=== PATIENT | male | born 1930 | race Caucasian/White ===

== ENCOUNTER 2016-07-31 23:00 | Observation (INO) | payer MEDICARE, BC ==
--- NOTE | ~2016-07-31 | CONSULT ---
Radiation Oncology Consult [address] [place]. [address] NAME: JANET BELLA : 31 STATUS : ADM Christine PAT#: [id number] AGE: 86 ADM/REG DATE : 07/31/16 MR#: [id number] REPORT SERV DATE: 08/02/16 DICTATED BY: JUSTIN ROTH DATE: 08/02/16 REPORT STATUS : Draft TRANSCRIBED BY: [place] DATE: 08/02/16 RADIATION ONCOLOGY CONSULTATION DIAGNOSIS: Stage IB; T2, N0, M0, right lower lobe non-small cell lung cancer. PREVIOUS TREATMENT: Hypofractionated IMRT to 60 Gy in 15 fractions. DATE OF COMPLETION: 11/24/2015. INTERVAL HISTORY: This is a delightful 86-year-old male with dementia and CVA, who presented with increasing shortness of breath and cough. A CT of chest confirmed a large mass in the right lower lobe and a bronchoscopy was positive for moderately differentiated squamous cell carcinoma. He underwent definitive radiation to 60 Gy with hypofractionated radiation. He tolerated treatment very well and had a nice response with his most recent CT of chest on 02/26/2016 noting a decrease in the mass to now measuring 3 cm. The patient is currently admitted with 3 days of generalized weakness as well as nausea and vomiting. A CT of the abdomen and pelvis was performed. This showed enlarging right lower lobe mass with adjacent pleural thickening at the site of the prior radiation. There were chronic calcified pleural plaques. There was no other evidence of metastatic disease. I am consulted to discuss imaging findings. At today's visit, the patient reports he is doing well. He is a poor historian, and his family is not present at this time. Upon questioning, he reports he is feeling fairly well. He has had no changes in his respiratory symptoms. He has chronic dyspnea on exertion. He denies any weight loss, bone pains, or new neurologic symptoms. PAST MEDICAL HISTORY: 1. Dementia. 2. CVA. 3. Hemiplegia. 4. Hypertension. 5. Hyperlipidemia. 6. Anxiety. 7. Sleep apnea. 8. Tobacco abuse. 9. Stage IB non-small cell lung cancer. REVIEW OF SYSTEMS: A complete and extended review of system was performed, pertinent positives noted in the HPI. MEDICATIONS: Medication reconciliation has been reviewed and discussed. Please refer to EMR. ALLERGIES: NO KNOWN DRUG ALLERGIES. Radiation Oncology Consult [address] [place]. [address] NAME: JANET BELLA : 31 STATUS : ADM Christine PAT#: [id number] AGE: 86 ADM/REG DATE : 07/31/16 MR#: [id number] REPORT SERV DATE: 08/02/16 DICTATED BY: JUSTIN ROTH DATE: 08/02/16 REPORT STATUS : Draft TRANSCRIBED BY: [place] DATE: 08/02/16 SOCIAL HISTORY: The patient is . Prior smoker for more than 40 years. He denies alcohol or illicit drug use. PHYSICAL EXAMINATION: ECOG performance status 2. Pain score 0/10. VITAL SIGNS: Weight 165. Height 5 feet 10 inches. Temperature afebrile. GENERAL: A well-developed, well-nourished elderly male in no acute distress. He is lying comfortably in the hospital bed. HEENT: Normocephalic. Extraocular movements intact. Moist mucous membranes. LYMPHATICS: No supraclavicular or cervical lymphadenopathy. CARDIOVASCULAR: Normal rate and rhythm. No murmurs. RESPIRATORY: Clear to auscultation bilaterally. Normal breathing. No wheezing. GI: Soft, nontender, and nondistended. EXTREMITIES: No edema. Normal range of motion. NEUROLOGIC: Cranial nerves intact. Aside the hemiplegia is unchanged. Patient lying in the hospital bed and gait not tested. PSYCHIATRIC: Verbalizes understanding of our discussion. Demonstrates appropriate insight. IMAGING: I personally reviewed the CT of the abdomen and pelvis, shows dense consolidation in the right lower lobe. This is the site of prior radiation. ASSESSMENT AND PLAN: An 86-year-old male with stage IB; T2a, N0, M0, right lower lobe squamous cell carcinoma, status post definitive radiation. I suspect his imaging findings are consistent with post-radiation change. I believe he would benefit from a dedicated CT of chest with IV contrast. I will follow with the patient after CT to discuss these findings. I appreciate the opportunity to take part in this patient's care. JOSÉ/GEOR[place] Justin Roth MD / [id number] CC: Ayana Grant M.D. Darrell Johnson, M.D.
--- NOTE | ~2016-07-31 | HP ---
History And Physical [address] [place]. [address] NAME: JANET BELLA : 31 STATUS : ADM Christine PAT#: [id number] AGE: 86 ADM/REG DATE : 07/31/16 MR#: [id number] REPORT SERV DATE: 08/01/16 DICTATED BY: MARY BEE DATE: 08/01/16 REPORT STATUS : Draft TRANSCRIBED BY: MODL DATE: 08/01/16 DATE OF ADMISSION: 07/31/2016 CHIEF COMPLAINT: Weakness. HISTORY OF PRESENT ILLNESS: The patient is an 86-year-old male with past medical history of right lung cancer, seen by Dr. Orozco with radiation approximately six months ago completed by Dr. Laura Roth, who presents after having three days of generalized weakness that has been constant, moderate severity without pain or radiating symptoms, but did notice to have nausea and vomiting, only eating minimal or quarter of Ensure today and only a few bites of food in the last two days. Has had progressive weakness. No worsening symptoms, but no relieving symptoms. Symptoms are still currently present, and family is concerned for loss of appetite and nausea and vomiting type symptoms. ADDITIONAL REVIEW OF SYSTEMS: CONSTITUTIONAL: Noted for weakness, but no fever or chills. EYES: No eye pain or visual changes. ENT: No sore throat or congestion. NEURO: No headache or confusion. SKIN: No rashes or urticaria. RESPIRATORY: No shortness of breath or cough. CV: No chest pain or palpitations. GI: Positive for nausea and vomiting. : No dysuria or hematuria reported. MUSCULOSKELETAL: No myalgias or arthralgias above baseline. ENDO: Does have fatigue, but no polyuria. HEME: No bleeding, but does have bruising history that is chronic. IMMUNOLOGIC: No rhinorrhea. PSYCH: No anxiety, but does have a dementia component. PAST MEDICAL HISTORY: Right lung cancer, dementia, CVA with right-sided weakness, hypertension, anxiety, hyperlipidemia, chronic back pain with narcotic dependence, urethral stricture surgically dilated, MARISSA, asbestos exposure, GI bleeding on Plavix. PAST SURGICAL HISTORY: Back surgery. SOCIAL HISTORY: Noted for GI cancers. SOCIAL HISTORY: Smoked 40 years ago. Does have asbestos exposure. personal computer network engineer. No alcohol or illicits. ALLERGIES: NO KNOWN DRUG ALLERGIES. HOME MEDICATIONS: List still currently pending once pharmacy opens to confirm. PHYSICAL EXAMINATION: VITAL SIGNS: The patient's blood pressure is 122/74, temperature 97.6, pulse 91, O2 sats History And Physical [address] [address] NAME: JANET BELLA : 32 STATUS : ADM Christine PAT#: [id number] AGE: 86 ADM/REG DATE : 07/31/16 MR#: [id number] REPORT SERV DATE: 08/01/16 DICTATED BY: MARY BEE DATE: 08/01/16 REPORT STATUS : Draft TRANSCRIBED BY: [place] DATE: 08/01/16 92% on room air. GENERAL: Well developed, well nourished. HEAD: Normocephalic, atraumatic. EYES: No scleral icterus. EOMI. ENT: Nares patent. Tongue midline. Mildly dry mucous membranes. RESPIRATORY: No wheezes. Polyphonic breath sounds on right side and no stridor. CHEST: Equal chest expansion. CV: Mildly tachycardic, but no rubs. No pedal edema. GI: Soft, nontender, nondistended. : Deferred. MUSCULOSKELETAL: Moves extremities. Does have contracture of right hand and fingers secondary to prior stroke, but able to lift and move hand. SKIN: Warm and dry. LYMPH: No cervical or supraclavicular lymphadenopathy. HEME: No bleeding or bruising. NEURO: Alert and oriented. Does move all extremities with debilitated right hand prior from stroke. Does have overall slightly decreased weakness, generalized. Does have occasional confusion episodes, which says is related to dementia PSYCH: Appropriate mood and affect. IMAGING: CT abdomen and pelvis noted for no acute abdominal or pelvic pathology, but enlarging right mass in the lower lobe with pleural thickening suspicious for progression of underlying malignancy. LABORATORY DATA: Flu screen negative. Urinalysis; negative leukocyte esterase and nitrites. CMP; sodium 142, potassium 3.9, BUN and creatinine 12 and 1.16, glucose 124. LFTs within normal limits. Alkaline phosphatase 121. Albumin 3.1 with a calcium of 8.9 and total protein 8. Glucose 124. CBC; WBC count 7.4, H and H 14.7 and 45.7, platelets 356. ASSESSMENT: 1. Weakness. 2. Nausea and vomiting. 3. Headache with dizziness. 4. Increased right lung mass. 5. Prior stroke with right arm deficit reported at baseline. 6. Dementia at baseline. 7. Recent esophageal dilatation. Improved p.o. tolerance per . PLAN: 1. For weakness and decreased p.o. intake, we will give IV fluids. The patient has had recent esophageal dilatation, but no signs or symptoms of aspiration reported, and the patient reports that he is able to tolerate somewhat bigger meals than he has in the past, but overall decreased p.o. intake in the last two days. IV fluids to monitor. CT noted for enlarging right lower lobe tumor. We will need to check ionized calcium. 2. Nausea and vomiting. Treat supportively. Currently comfortable at rest. 3. Headache with dizziness. The patient clinically looks volume depleted with decreased p.o. intake and dry mucous membranes. We will IV hydrate. No acute neuro History And Physical [address] [address] NAME: JANET BELLA : 31 STATUS : ADM Christine PAT#: [id number] AGE: 86 ADM/REG DATE : 07/31/16 MR#: [id number] REPORT SERV DATE: 08/01/16 DICTATED BY: MARY BEE DATE: 08/01/16 REPORT STATUS : Draft TRANSCRIBED BY: [place] DATE: 08/01/16 decompensation. Check orthostasis. Questionable vertigo component. We will defer CT head if required or any clinical change to Oncology as possible CT chest may be required to decrease radiation load if not needed. 4. Increased right lung nodule noted on CT of abdomen. Onc evaluation. Obtain records from Dr. Orozco and sees Dr. Roth. Defer to Dr. Orozco or Oncology Team for further guidance. 5. Prior stroke with right arm deficit appears neurologically at baseline per family except for weakness. 6. Dementia also reported at baseline. 7. Recent esophageal dilatation. The patient reports he is also able to tolerate slightly bigger meals than previously. DISPOSITION: Pending oncology evaluation and improvement of weakness. DDN/MODL Mary Bee MD / [id number] CC: MD Liz Gil M.D.
--- NOTE | ~2016-07-31 | DS ---
Discharge Summary [facility] [address] [place]. [address] NAME: JANET BELLA : 32 STATUS : DIS IN PAT#: [id number] AGE: 86 ADM/REG DATE : 08/02/16 MR#: [id number] REPORT SERV DATE: 08/04/16 DICTATED BY: DATE: REPORT STATUS : Draft TRANSCRIBED BY: MODL DATE: 08/03/16 ADMISSION DATE: 08/02/2016 DISCHARGE DATE: 08/03/2016 DISCHARGE DIAGNOSES: 1. Weakness/debility. 2. Nausea. 3. Dementia. 4. Severe malnutrition. 5. Non-small cell lung cancer. CONSULTATIONS: Dr. Luis Roth, [facility]. PERTINENT TESTS AND PROCEDURES: 1. CT of abdomen and pelvis, 07/31/2016, impression:. a. No acute abdominal or pelvic pathology. No bowel obstruction pattern. b. Enlarging mass, right lower lobe, with adjacent pleural thickening, suspicious for progression of known underlying malignancy. c. Chronic calcified pleural plaques both left and right hemothoraces consistent with remote sequelae of chronic asbestos exposure. d. Bilateral simple renal cysts. e. Prostate enlargement probably be BPH, although recommend correlation PSA levels. f. Mild diverticulosis, sigmoid colon. No diverticulitis pattern. g. Chronic changes of spinal fusion, L4 through 5. 2. Chest x-ray, 07/31/2016, impression, opacity in the right lung base consistent with a mass identified on prior CT, 10/12/2016. 3. Chest x-ray, 08/01/2016, impression, appears to be increase in effusion in the right costophrenic angle compared to previous study. Right lung base mass is accentuated most likely secondary to oblique position. 4. CT of the chest with contrast, 08/02/2016, impression:. a. The patient is status post treatment for right lower lobe lung carcinoma. Consolidation in the right lower lobe with air bronchograms. Recurrent mass lesion within the consolidated lung cannot be excluded. b. No adenopathy. c. COPD. Extensive bilateral pleural thickening and pleural calcifications consistent with prior asbestos exposure. d. Images of the upper abdomen do not demonstrate evidence of metastatic disease. Bones are diffusely osteopenic. No lytic bone lesions. 5. Influenza A and B screen negative. 6. Urinalysis, 07/31/2016, result negative. HOSPITAL COURSE: Please refer to history and physical dated 08/01/[address] Carson Marie for complete details pertaining to the patient's initial presentation upon admission and health history. Discharge Summary [address] [facility] [place]. [address] NAME: JANET BELLA : 32 STATUS : DIS IN PAT#: [id number] AGE: 86 ADM/REG DATE : 08/02/16 MR#: [id number] REPORT SERV DATE: 08/04/16 DICTATED BY: DATE: REPORT STATUS : Draft TRANSCRIBED BY: MODL DATE: 08/03/16 Please also refer to consultation dated 08/02/[address] Luis Roth, Radiation Oncology. Briefly, the patient is an 86-year-old male, who presented to the emergency department on 07/31/2016 with complaints of increased generalized weakness for approximately three days prior to admission, nausea with vomiting, and decreased appetite. During initial diagnostic workup, CT of abdomen and pelvis reported enlarging right mass in the lower lobe with pleural thickening, suspicious for progression of underlying malignancy. Dr. Luis Roth, Radiation Oncology, was consulted for additional evaluation and recommendation. The patient was approximately six months status post radiation therapy prior to this admission. 1. Weakness and debility. The patient has a history of right-sided residual weakness secondary to stroke. Physical Therapy evaluation was completed during this admission. Plan is for the patient to resume Home Health Care upon discharge. The patient does have difficulty going from bed to standing without max assist. However, when standing, the patient is able to ambulate short distances using a walker. The patient will be provided with a hospital bed for home use upon discharge secondary to weakness and difficulty repositioning body while in bed. 2. Nausea. The patient reported nausea and vomiting upon admission. Vomiting has since resolved during this hospital stay. The patient has responded well to Zofran as needed and will be provided a prescription at discharge. Exact etiology of nausea is unclear; however, it is noteworthy to mention that the patient is status post recent esophageal dilatation. The patient is able to eat and swallow food without difficulty. 3. Dementia. Per family report, the patient's mental status is at baseline. Continue home medications to include Exelon patch and Namenda. 4. Severe malnutrition. This has been an ongoing issue in the setting of lung cancer. The patient has been encouraged to consume p.o. intake and it is recommended that nutritional supplement shakes of the patient's preference be provided three times daily at home. Nutrition was consulted during this visit. 5. Non-small cell lung cancer. Dr. Luis Roth was consulted during this admission. CT of chest was ordered and per Radiation Oncology, review of scan indicated post radiation therapy change with no evidence of disease recurrence. The patient is to follow up with Dr. Roth in three months for office visit and repeat CT scan of the chest. DISCHARGE CONDITION: At the time of discharge, the patient is hemodynamically stable. DISCHARGE DIET: Regular diet as tolerated. DISCHARGE MEDICATIONS: 1. Aspirin 81 mg tablet p.o. daily. 2. Lipitor 40 mg tablet p.o. daily. 3. Baclofen 20 mg tablet p.o. twice daily. 4. Depakote ER 250 mg tablet p.o. daily. 5. Flonase nasal spray one spray in each nostril daily. Discharge Summary [address] [address] NAME: JANET BELLA : 32 STATUS : DIS IN PAT#: [id number] AGE: 86 ADM/REG DATE : 08/02/16 MR#: [id number] REPORT SERV DATE: 08/04/16 DICTATED BY: DATE: REPORT STATUS : Draft TRANSCRIBED BY: [place] DATE: 08/03/16 6. Robitussin 200 mg per 10 mL syrup 400 mg p.o. every six hours as needed. 7. Namenda 10 mg tablet p.o. daily. 8. Myrbetriq 25 mg tablet p.o. daily. 9. Zofran 4 mg tablet p.o. every four hours as needed. 10.Prilosec 20 mg tablet p.o. daily. 11.Lyrica 75 mg tablet p.o. daily. 12.Exelon 9.5 mg patch daily. 13.Tylenol 325 mg tablet, take 650 mg p.o. every four hours as needed. 14.Colace 100 mg tablet p.o. twice daily as needed. 15.Ultram 50 mg tablet p.o. twice daily as needed. 16.Senokot two tablets p.o. at bedtime as needed. 17.Albuterol 0.083% 3 mL inhalation solution one nebulizer treatment inhaled every six hours as needed. DISCHARGE INSTRUCTIONS: 1. Follow up with Dr. Luis Roth, Radiation Oncology, in three months for office visit and repeat CT scan of the chest. 2. The patient and spouse were instructed to return to the ER for any acute onset of intractable nausea, vomiting, abdominal pain, shortness of breath, fever 100.4 or greater lasting more than one hour, or any other acute changes that are deviations from his baseline health status at the time of this discharge. PRIMARY RADIATION ONCOLOGIST: Dr. Luis Roth. PRIMARY ONCOLOGIST: Dr. Orozco, [facility]. JWH/MODL Carmelita James NP-C / [id number] CC: Ayana Jones M.D. Derek W Holland, M.D. Darshan D. Naik, MD Jonathan T Whaley, MD
[2016-07-31 16:52] LABS: BASOPHILS 0.1 %; BASOPHILS ABSOLUTE 0.01 10/3/uL (0.0-0.16); EOSINOPHILS 0.8 %; EOSINOPHILS ABSOLUTE 0.06 10/3/uL (0.0-0.53); ER CBC TAT 0 Hrs 09 Mins; HEMATOCRIT 45.9 % (40.0-51.0); HEMOGLOBIN 14.7 g/dL (13.6-17.8); IMMATURE GRANULOCYTES 0.3 %; IMMATURE GRANULOCYTES ABSOLUTE 0.02 10/3/uL (0.0-0.11); LYMPHOCYTES 11.7 %; LYMPHOCYTES ABSOLUTE 0.87 10/3/uL (0.67-4.30); MANUAL DIFF NO %; MEAN CORPUSCULAR HEMOGLOB 27.9 pg (26.0-34.0); MEAN CORPUSCULAR VOLUME 87.1 fL (80-100); MEAN PLATELET VOLUME 9.3 fL (9.2-13.0); MONOCYTES 5.5 %; MONOCYTES ABSOLUTE 0.41 10/3/uL (0.21-1.20); NEUTROPHILS 81.6 %; NEUTROPHILS ABSOLUTE 6.05 10/3/uL (2.02-8.40); PLATELET COUNT 356 10/3/uL (150-400); RBC DISTRIBUTION WIDTH 16.8 % (12.0-16.0); RED CELL COUNT 5.27 10/6/uL (4.7-6.1); WHITE BLOOD CELLS 7.4 10/3/uL (4.5-10.5)
[2016-07-31 17:04] LABS: A/G RATIO 0.6 (0.7-1.9); ALBUMIN 3.1 G/DL (3.5-5.0); ALKALINE PHOSPHATASE 121 U/L (45-117); BUN (BLOOD UREA NITROGEN) 12 MG/DL (6-23); CALCIUM, SERUM 8.9 MG/DL (8.5-10.4); CHLORIDE, SERUM 105 MMOL/L (96-112); CO2 (CARBON DIOXIDE) 27 MMOL/L (24-34); CREATININE 1.16 MG/DL (0.70-1.30); GFR AFRICAN AMERICAN 66 ML/MIN (>=60); GFR NON AFRICAN AMERICAN 57 ML/MIN (>=60); GLOBULIN 4.9 G/DL (2.5-4.1); GLUCOSE, SERUM 124 MG/DL (60-99); POTASSIUM, SERUM 3.9 MMOL/L (3.5-5.3); SGOT(AST) 11 U/L (5-40); SGPT(ALT) 11 U/L (5-65); SODIUM, SERUM 142 MMOL/L (135-148); TOTAL BILIRUBIN 0.5 MG/DL (0-1.2)
[2016-07-31 20:26] LABS: INFLUENZA A SCREEN NEGATIVE (NEGATIVE); INFLUENZA B SCREEN NEGATIVE (NEGATIVE)
[2016-07-31 21:00] LABS: ASCORBIC ACID (UR NOT ORDER) NEG (NEG); BILIRUBIN, URINE SMALL (NEG); ER URINALYSIS TAT 0 Hrs 15 Mins; KETONE, URINE TRACE MG/DL (NEG); LEUKOCYTE ESTERASE(NOT OR NEG (NEG); NITRITE (URINE) NEG (NEG); WBC (NOT ORDERED) (RFLEX) 2 (0-5)
[~2016-07-31 23:00] MED LIST: ASAB PO; BACLOFEN20 MG PO; CELEXA10 PO; CELEXA20 PO; DEPAKOT250 PO; ENDODAN PO; EXELON9.5T TOP; FLOMAX4 PO; FLONASE NAS; FLORASTOR250 MG; HALF81 PO; LEVAQUDL PO; LEVAQUIN750 MG PO; LIPITOR40 PO; LYRICA75 PO; MYRBETRIQ25 MG PO; MYRBETRIQ50 MG PO; NAMENDA10 MG PO; NAMENXR28 PO; PERCOCET1 TA2 PO; PRILO PO; PRIN2.5 PO; PRIN20 PO; RESTASIS OPH; T PO; TAMIFLU PO; ULTRAM50 PO; VENTOLIN HFA
[2016-08-01] MEDS ORDERED: BACLOFEN20 MG PO ×2 (00:26→00:36)
[2016-08-01] MEDS ORDERED: ALBUTEROL0.083 % INH ×2 (00:26→00:36)
[2016-08-01] MEDS ORDERED: FLONASE (00:27)
[2016-08-01] MEDS ORDERED: LYRICA75 PO ×2 (00:27→00:35)
[2016-08-01] MEDS ORDERED: DEP250 PO (00:27)
[2016-08-01] MEDS ORDERED: PRILO PO ×2 (00:28→00:34)
[2016-08-01] MEDS ORDERED: NAMENDA10 MG PO ×2 (00:28→00:35)
[2016-08-01] MEDS ORDERED: ULTRAM50 PO ×2 (00:28→00:34)
[2016-08-01] MEDS ORDERED: LIPITOR40 PO ×2 (00:29→00:33)
[2016-08-01] MEDS ORDERED: EXELON9.5T TOP ×2 (00:29→00:33)
[2016-08-01] MEDS ORDERED: MYRBETRIQ25 MG PO ×2 (00:29→00:34)
[2016-08-01] MEDS ORDERED: CELEXA20 PO (00:30)
[2016-08-01] MEDS ORDERED: ASAB PO ×2 (00:30→00:33)
[2016-08-01] MEDS ORDERED: FLONASE NAS (00:35)
[2016-08-01] MEDS ORDERED: DEPAKOT250 PO (00:36)
[2016-08-01] MEDS ORDERED: DEPAK250ER PO (00:37)
[2016-08-01 06:16] LABS: BASOPHILS 0.5 %; BASOPHILS ABSOLUTE 0.03 10/3/uL (0.0-0.16); EOSINOPHILS 2.2 %; EOSINOPHILS ABSOLUTE 0.14 10/3/uL (0.0-0.53); HEMOGLOBIN 12.8 g/dL (13.6-17.8); IMMATURE GRANULOCYTES 0.5 %; IMMATURE GRANULOCYTES ABSOLUTE 0.03 10/3/uL (0.0-0.11); LYMPHOCYTES 18.8 %; LYMPHOCYTES ABSOLUTE 1.19 10/3/uL (0.67-4.30); MEAN CORPUS HGB CONC 31.8 g/dL (32.0-36.0); MEAN CORPUSCULAR HEMOGLOB 27.3 pg (26.0-34.0); MEAN CORPUSCULAR VOLUME 85.7 fL (80-100); MEAN PLATELET VOLUME 9.1 fL (9.2-13.0); MONOCYTES 6.2 %; MONOCYTES ABSOLUTE 0.39 10/3/uL (0.21-1.20); NEUTROPHILS 71.8 %; NEUTROPHILS ABSOLUTE 4.55 10/3/uL (2.02-8.40); PLATELET COUNT 306 10/3/uL (150-400); RED CELL COUNT 4.69 10/6/uL (4.7-6.1); WHITE BLOOD CELLS 6.3 10/3/uL (4.5-10.5)
[2016-08-01 06:21] LABS: HEMATOCRIT 40.2 % (40.0-51.0)
[2016-08-01 06:22] LABS: MANUAL DIFF NO %
[2016-08-01 06:27] LABS: BUN (BLOOD UREA NITROGEN) 14 MG/DL (6-23); CALCIUM, SERUM 8.4 MG/DL (8.5-10.4); CHLORIDE, SERUM 108 MMOL/L (96-112); CO2 (CARBON DIOXIDE) 26 MMOL/L (24-34); CREATININE 0.91 MG/DL (0.70-1.30); GFR AFRICAN AMERICAN 89 ML/MIN (>=60); GFR NON AFRICAN AMERICAN 77 ML/MIN (>=60); POTASSIUM, SERUM 4.1 MMOL/L (3.5-5.3); SODIUM, SERUM 144 MMOL/L (135-148)
[2016-08-01 06:28] LABS: GLUCOSE, SERUM 86 MG/DL (60-99)
[2016-08-02 05:54] LABS: BASOPHILS 0.1 %; BASOPHILS ABSOLUTE 0.01 10/3/uL (0.0-0.16); EOSINOPHILS 2.9 %; EOSINOPHILS ABSOLUTE 0.23 10/3/uL (0.0-0.53); HEMATOCRIT 38.4 % (40.0-51.0); HEMOGLOBIN 12.2 g/dL (13.6-17.8); IMMATURE GRANULOCYTES 0.1 %; IMMATURE GRANULOCYTES ABSOLUTE 0.01 10/3/uL (0.0-0.11); LYMPHOCYTES ABSOLUTE 0.97 10/3/uL (0.67-4.30); MEAN CORPUS HGB CONC 31.8 g/dL (32.0-36.0); MEAN CORPUSCULAR VOLUME 88.1 fL (80-100); MEAN PLATELET VOLUME 9.4 fL (9.2-13.0); MONOCYTES 5.1 %; MONOCYTES ABSOLUTE 0.41 10/3/uL (0.21-1.20); NEUTROPHILS 79.8 %; NEUTROPHILS ABSOLUTE 6.43 10/3/uL (2.02-8.40); PLATELET COUNT 263 10/3/uL (150-400); RBC DISTRIBUTION WIDTH 16.8 % (12.0-16.0); RED CELL COUNT 4.36 10/6/uL (4.7-6.1); WHITE BLOOD CELLS 8.1 10/3/uL (4.5-10.5)
[2016-08-02 06:00] LABS: MANUAL DIFF NO %
[2016-08-02 06:16] LABS: CALCIUM, SERUM 7.9 MG/DL (8.5-10.4); CHLORIDE, SERUM 111 MMOL/L (96-112); CO2 (CARBON DIOXIDE) 23 MMOL/L (24-34); CREATININE 0.67 MG/DL (0.70-1.30); GFR AFRICAN AMERICAN 102 ML/MIN (>=60); GFR NON AFRICAN AMERICAN 88 ML/MIN (>=60); GLUCOSE, SERUM 95 MG/DL (60-99); POTASSIUM, SERUM 3.6 MMOL/L (3.5-5.3); SODIUM, SERUM 143 MMOL/L (135-148)
[2016-08-02 06:19] LABS: BUN (BLOOD UREA NITROGEN) 10 MG/DL (6-23)
[2016-08-03 04:03] LABS: BASOPHILS 0.1 %; BASOPHILS ABSOLUTE 0.01 10/3/uL (0.0-0.16); EOSINOPHILS 3.8 %; EOSINOPHILS ABSOLUTE 0.26 10/3/uL (0.0-0.53); HEMOGLOBIN 12.7 g/dL (13.6-17.8); IMMATURE GRANULOCYTES 0.1 %; IMMATURE GRANULOCYTES ABSOLUTE 0.01 10/3/uL (0.0-0.11); MEAN CORPUS HGB CONC 32.6 g/dL (32.0-36.0); MEAN CORPUSCULAR HEMOGLOB 28.4 pg (26.0-34.0); MEAN CORPUSCULAR VOLUME 87.2 fL (80-100); MONOCYTES 7.3 %; NEUTROPHILS 72.7 %; PLATELET COUNT 241 10/3/uL (150-400); RBC DISTRIBUTION WIDTH 16.8 % (12.0-16.0); RED CELL COUNT 4.47 10/6/uL (4.7-6.1); WHITE BLOOD CELLS 6.9 10/3/uL (4.5-10.5)
[2016-08-03 04:08] LABS: MANUAL DIFF NO %
[2016-08-03 04:18] LABS: BUN (BLOOD UREA NITROGEN) 9 MG/DL (6-23); CALCIUM, SERUM 8.7 MG/DL (8.5-10.4); CHLORIDE, SERUM 108 MMOL/L (96-112); CO2 (CARBON DIOXIDE) 25 MMOL/L (24-34); CREATININE 0.71 MG/DL (0.70-1.30); GFR AFRICAN AMERICAN 99 ML/MIN (>=60); GFR NON AFRICAN AMERICAN 86 ML/MIN (>=60); GLUCOSE, SERUM 89 MG/DL (60-99); POTASSIUM, SERUM 3.9 MMOL/L (3.5-5.3); SODIUM, SERUM 142 MMOL/L (135-148)
[2016-08-03 07:02] LABS: PROCALCITONIN <0.05 ng/mL (<0.5)
[2016-08-03] MEDS ORDERED: XPECT400 MG PO (18:50)
[2016-08-03] MEDS ORDERED: ZOFRAN4 PO (18:52)
[2016-08-03] MEDS ORDERED: T PO (18:54)
[2016-08-03] MEDS ORDERED: DSS PO (18:55)
[2016-08-03] MEDS ORDERED: SENTAB PO (18:56)
== END 2016-08-03 20:22 | disposition home or self-care (01) ==
LOC: ER 23:00 → 4EA 23:59
PROVIDERS: Emergency Medicine; Nurse Practitioner Adult Health; Nurse Practitioner Family; Student in an Organized Health Care Education/Training Program
DX: R53.1 Weakness (principal); R11.2 Nausea with vomiting, unspecified; R42 Dizziness and giddiness; R51 Headache; R91.8 Other nonspecific abnormal finding of lung field; F03.90 Unspecified dementia, unspecified severity, without behavioral disturbance, psychotic disturbance, mood disturbance, and anxiety; I10 Essential (primary) hypertension; F41.9 Anxiety disorder, unspecified; G89.29 Other chronic pain; M54.9 Dorsalgia, unspecified; G47.33 Obstructive sleep apnea (adult) (pediatric); E78.5 Hyperlipidemia, unspecified; F17.210 Nicotine dependence, cigarettes, uncomplicated; E43 Unspecified severe protein-calorie malnutrition; C34.90 Malignant neoplasm of unspecified part of unspecified bronchus or lung; H91.90 Unspecified hearing loss, unspecified ear; E78.00 Pure hypercholesterolemia, unspecified; J18.9 Pneumonia, unspecified organism; K21.9 Gastro-esophageal reflux disease without esophagitis; F32.9 Major depressive disorder, single episode, unspecified; Z79.02 Long term (current) use of antithrombotics/antiplatelets; Z98.890 Other specified postprocedural states; Z79.82 Long term (current) use of aspirin; Z79.899 Other long term (current) drug therapy; Z86.73 Personal history of transient ischemic attack (TIA), and cerebral infarction without residual deficits; Z98.41 Cataract extraction status, right eye; Z98.42 Cataract extraction status, left eye; Z90.49 Acquired absence of other specified parts of digestive tract
CPT/HCPCS: 71010; 71260; 74176; 80048; 80053; 81001; 82330; 83735; 84145; 85025; 87804; 96372; 97162-GP; 99285; A9270-GY; G0378; G8978-CJ-GP; G8979-CJ-GP; G8980-CJ-GP; Q9967